=== PATIENT | male | born 1970 | race Caucasian/White ===

== ENCOUNTER 2019-04-16 13:07 | Emergency (ER) | payer MEDICAID ==
[~2019-04-16] VITALS: Ht 170.2 cm; Wt 81.6 kg
--- NOTE | 2019-04-16 13:07 | NUR ---
PATIENT TO BED 1 BY EMS AT THIS TIME.
[2019-04-16 13:08] VITALS: BP 129/69
--- NOTE | 2019-04-16 13:20 | NUR ---
PT IS A 41 Y/O MALE WHO PRESENTS TO THE ED C/O BILATERAL LEG PAIN. PT STATES THAT START OF SYMPTOMS X10 DAYS AGO. PT REPORST 6/10 ACHING BILATERAL LEG PAIN THAT DOES NOT RADIATE. NOTED SWELLING. PT DENIES CP, SOB, N/V/D. PT AWAKE AND ALERT, RR EVEN/UNLABORED. PT REPOSITIONED FOR COMFORT, BED IN LOWEST POSITION. ER MD DR. DOWD NOTIFIED. WILL CONTINUE TO MONITOR. [facility]---SCHIZOPHRENIA
--- NOTE | 2019-04-16 13:45 | NUR ---
REPORT GIVEN TO MANUEL ZARCO.
[2019-04-16] MEDS ORDERED: NACL 0.9% 2,000 ML IV SCH (14:05)
[2019-04-16] MEDS ORDERED: CLINDAMYCIN 900 MG in DEXTROSE 5% 100 ML IV ONE (14:05)
[2019-04-16 14:38] LABS: BASOPHILS % (AUTO) 0.2 % (0.0-2.0); EOSINOPHILS # (AUTO) 0.1 K/uL (0-0.4); EOSINOPHILS % (AUTO) 1.2 % (0.0-4.0); HEMATOCRIT 31.3 % (36-52); HEMOGLOBIN 10.6 g/dL (12.0-18.0); LYMPHOCYTES # (AUTO) 0.9 K/uL (2.0-11.5); MEAN CORPUSCULAR HEMOGLOBIN 32 pg (27-31); MEAN CORPUSCULAR HGB CONC 34 g/dL (33-37); MEAN CORPUSCULAR VOLUME 94.5 fL (80-94); MONOCYTES # (AUTO) 0.7 K/uL (0.8-1.0); MONOCYTES % (AUTO) 7.7 % (1.7-9.3); NEUTROPHILS # (AUTO) 7.9 K/uL (1.8-7.7); NEUTROPHILS % (AUTO) 81.9 % (42.2-75.2); PLATELET COUNT (AUTO) 253 K/uL (140-450); RED BLOOD CELL COUNT(AUTO) 3.32 MIL/uL (4.20-6.10); RED CELL DISTRIBUTION WIDTH 13.9 % (11.6-13.7); WHITE BLOOD COUNT (AUTO) 9.7 K/uL (4.8-10.8)
[2019-04-16] MEDS ORDERED: CLINDAMYCIN 900 MG/6 ML VIAL IV ONE (14:43)
[2019-04-16 15:10] LABS: ALBUMIN 2.7 g/dL (3.4-5.0); ANION GAP 9.4 (8-16); CARBON DIOXIDE 31.3 mmol/L (21-32); CREATININE 0.7 mg/dL (0.7-1.3); POTASSIUM 3.7 mmol/L (3.5-5.1); TOTAL BILIRUBIN 0.3 mg/dL (0.0-1.0)
[2019-04-16 16:13] LABS: APPEARANCE,URINE SL CLOUDY (CLEAR); BILIRUBIN,URINE NEGATIVE (NEGATIVE); BLOOD, URINE NEGATIVE (NEGATIVE); COLOR,URINE YELLOW (YELLOW); LEUKOCYTE ESTERASE ,URINE NEGATIVE (NEGATIVE); NITRITE, URINE NEGATIVE (NEGATIVE); PH,URINE 7.5 (5.0-9.0); UGLUCOSE NEGATIVE (NEGATIVE)
[2019-04-16 16:18] LABS: BARBITURATE, URINE NEG. ng/ml (NEG <=200); BENZODIAZEPINE, URINE NEG. ng/mL (NEG <=200); CANNABINOID, URINE NEG. ng/mL (NEG <=50); COCAINE, URINE NEG. ng/mL (NEG <=300); OPIATE, URINE NEG. ng/mL (NEG <=2000); PHENCYCLIDINE SCREEN,URINE NEG. ng/mL (NEG <=25)
[2019-04-16 17:34] VITALS: BP 129/69
--- NOTE | 2019-04-16 17:35 | NUR ---
Patient given written and verbal discharge instructions and verbalizes understanding. Given copies of tests performed during visit. Patient is awake, alert and oriented. Ambulatory with steady gait. Refuses offer of long-term placement. Given list of available shelters in surrounding areas. Rx of clindamycin, bactrim DS, Motrin given. Bus pass provided.
== END 2019-04-16 17:35 | disposition home or self-care (01) ==
LOC: MED 13:07 → EDBD 13:07 → MED 17:35
DX: L02.426 Furuncle of left lower limb (principal); L02.425 Furuncle of right lower limb; F64.0 Transsexualism; Z59.0 Homelessness
CPT/HCPCS: 36415; 36600; 80053; 80305; 81003; 82803; 83605; 83735; 85025; 87040; 87086; 96365; 99284; J3490; J7030